=== PATIENT | female | born 2005 | race Two or more races ===

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

== ENCOUNTER 2024-03-08 10:25 | Emergency (ER) | payer MEDICAID ==
[~2024-03-08] VITALS: Ht 154.9 cm; Wt 56.4 kg
[2024-03-08 10:55] LABS: Urine Bacteria None Seen /hpf (None Seen); Urine WBC None Seen /hpf (0 - 5)
[2024-03-08 11:17] LABS: Urine Blood 3+ /uL (Negative); Urine Clarity Ex.Turbid (Clear); Urine Color Dark-Red (Yellow); Urine Protein, UAD 2+ (Negative); Urine Specific Gravity 1.022 (1.001-1.035); Urine Urobilinogen Normal (Negative)
[2024-03-08 14:30] VITALS: BP 109/67; PULSE 104; RESP 18; TEMP 97.6; O2SAT 98
[2024-03-08] MEDS ORDERED: CEPH250C PO (14:55)
== END 2024-03-08 15:11 | disposition home or self-care (01) ==
LOC: ER 10:25
DX: O23.41 Unspecified infection of urinary tract in pregnancy, first trimester (principal); R10.2 Pelvic and perineal pain; J45.909 Unspecified asthma, uncomplicated; Z3A.11 11 weeks gestation of pregnancy; Z79.52 Long term (current) use of systemic steroids; Z79.899 Other long term (current) drug therapy
CPT/HCPCS: 36415; 76801; 76817; 81001; 84702